=== PATIENT | female | born 1950 | race Caucasian/White ===

== ENCOUNTER 2018-12-29 07:22 | Inpatient (IN) ==
--- NOTE | 2018-12-07 09:39 | PAT Medication Instructions ---
Medication Instructions Date of Service December 07, 2018 Home Medications aspirin [Aspir-81] 81 mg PO QAM atorvastatin 40 mg PO PM calcium carbonate [Calcium 500] 2 tab PO QAM cholecalciferol (vitamin D3) 1,000 unit PO QAM omega 6-xkb-pfc-fish oil [Fish Oil] 2 cap PO QAM STOP taking 2 weeks before surgery (or as soon as possible if surgery is within 2 weeks) omega 0-bec-mnq-fish oil [Fish Oil] 2 cap PO QAM DO NOT take the morning of surgery calcium carbonate [Calcium 500] 2 tab PO QAM cholecalciferol (vitamin D3) 1,000 unit PO QAM Take morning of surgery With a small sip of water, OTHERWISE NOTHING TO EAT OR DRINK AFTER MIDNIGHT: aspirin [Aspir-81] 81 mg PO QAM Take evening before surgery atorvastatin 40 mg PO PM Other Notes If you have any questions please call us at [phone] or [phone] or [phone] or [phone]
--- NOTE | 2018-12-07 11:14 | Anesthesiology Consultation ---
Date of Service December 07, 2018 Assessment & Plan (1) Encounter for pre-operative examination: Chart Review Chart Review: Acceptable Risk for Surgery and Patient seen in Pre Admission Testing Teaching & Discussion Pre-Anesthesia Teaching/Discussion Notes: Instructed NPO after midnight before surgery,except medications with 15 cc of water. Medication instructions provided according to the PAT guidelines. History Surgery Operation Date: 12/29/18 08:50 Proposed Procedures p Right Total Knee Arthroplasty - David Anguiano DO Height/Weight Height: 5 ft 1 in Weight: 78.3 kg Allergies Allergy/AdvReac Type Severity Reaction Status Date / Time sulfamethoxazole Allergy Hives Verified 11/30/18 11:26 [From Bactrim] trimethoprim [From Bactrim] Allergy Hives Verified 11/30/18 11:26 Medications Home Medications Medication Instructions Recorded Confirmed Last Taken aspirin [Aspir-81] 81 mg PO QAM 11/30/18 11/30/18 Unknown atorvastatin 40 mg PO PM 11/30/18 11/30/18 Unknown calcium carbonate [Calcium 500] 2 tab PO QAM 11/30/18 11/30/18 Unknown cholecalciferol (vitamin D3) 1,000 unit PO QAM 11/30/18 11/30/18 Unknown [Vitamin D3] omega 6-mqr-mxl-fish oil [Fish Oil] 2 cap PO QAM 11/30/18 11/30/18 Unknown Past Medical History Medical History History of skin cancer Hyperlipidemia Obesity Osteoarthritis Past Surgical History Surgical History History of bilateral tubal ligation History of colonoscopy Past Anesthesia History No Family Hx of Anesthesia Complications and Other Slow to wake x 1 episode with colonoscopy; no issues with subsequent anesthesia. History of PONV No Motion Sickness Screening History of Motion Sickness: Yes (OCCASIONAL) Social History Smoking Status: Never smoker Do You Dip or Chew Tobacco: No Hx Alcohol Use: No alcohol intake frequency: 0-2 drinks per day Alcohol Intake Frequency Comment: 0 Hx Substance Use: No substance use type: does not use Exercise / Class Metabolic Activity II 4-5 Yardwork/Stairs/Walk up hill Review of Systems Patient denies chest pain, shortness of breath, dyspnea on exertion, reflux, cough, wheezing, palpitations. Physical Exam Vital Signs VITALS BP 140/78 P 65 TEMP 97.8 SP02 98%RA RESP 16 Patient advised to followup with PCP regarding elevated BP. PHYSICAL Full neck and c-spine range of motion. Full TMJ range of motion. TMD 3 finger breaths Mallampati Score 3 Dentition: missing sides/molars Lungs: clear throughout to auscultation Cardiac: regular rate and rhythm, no murmurs noted Spine: normal Carotid arteries: negative bruit Extremities: no edema Testing Electrocardiogram Date: 12/07/18 Findings: + NSR @ (71) Chest X-Ray Date: 12/07/18 Findings: + NAD Laboratory Results Blood Type B Positive 12/07/18 11:30 Antibody Screen POSITIVE A 12/07/18 11:30 PT 9.8 Seconds (9.0-12.0) 12/07/18 11:30 INR 1.0 (0.9-1.1) 12/07/18 11:30 APTT 26.4 Seconds (21.0-31.0) 12/07/18 11:30 Positive T&S antibodies- per blood bank, nothing needed prior to surgery from [facility]. 11/07/18 WBC 7.77 H/H 14.0/41.6 PLATELETS 270 SODIUM 144 POTASSIUM 4.2 CHLORIDE 105 CO2 26 BUN 20 CREATININE 0.9 GLUCOSE 92
--- NOTE | 2018-12-07 11:54 | XRay Report ---
XR chest Pre-admission PA/Lat CLINICAL HISTORY: Preoperative chest COMPARISON STUDY: No previous studies for comparison. FINDINGS: The cardiac and mediastinal contours are normal. There is no evidence of focal pulmonary co nsolidation. There is no evidence of failure. No pleural effusions are visualized.[ IMPRESSION: No active disease in the chest. Electronically signed by: Felipe Gonzales M.D. 12/07/2018 11:53 AM
[2018-12-07 13:08] LABS: Partial Thromboplastin Time 26.4 Seconds (21.0-31.0); Prothrombin Time 9.8 Seconds (9.0-12.0)
--- NOTE | 2018-12-27 20:42 | History & Physical Report ---
Date of Service December 27, 2018 Assessment & Plan (1) Osteoarthritis of right knee: We will proceed with a right total knee arthroplasty. Postoperatively she will be started on aspirin for DVT prophylaxis. She will be kept overnight at the hospital for postop medical management. She plans to use [employer] upon discharge. Present on Admission?: Yes History of Present Illness Chief Complaint: Primary osteoarthritis of the right knee Primary Care Provider: Miley Mooney DO Cortney is a pleasant 68-year-old female who is been dealing with chronic increasing right knee pain. X-rays and clinical examination have been diagnostic for primary osteoarthritis of the right knee. After failing conservative treatment, she has elected proceed with a right total knee arthroplasty. Allergies Allergy/AdvReac Type Severity Reaction Status Date / Time sulfamethoxazole Allergy Hives Verified 11/30/18 11:26 [From Bactrim] trimethoprim [From Bactrim] Allergy Hives Verified 11/30/18 11:26 Home Medications Home Medications Medication Instructions Recorded Confirmed Type aspirin [Aspir-81] 81 mg PO QAM 11/30/18 11/30/18 History atorvastatin 40 mg PO PM 11/30/18 11/30/18 History calcium carbonate [Calcium 500] 2 tab PO QAM 11/30/18 11/30/18 History cholecalciferol (vitamin D3) 1,000 unit PO QAM 11/30/18 11/30/18 History [Vitamin D3] omega 7-pds-atd-fish oil [Fish Oil] 2 cap PO QAM 11/30/18 11/30/18 History Past Med/Surg History Medical History History of skin cancer Hyperlipidemia Obesity Osteoarthritis Surgical History History of bilateral tubal ligation History of colonoscopy Social History Preferred Language: Kittitian Communication Ability: Effective Director Digital Catalogue Required: No Beliefs That Will Affect Care: None Current Living Situation: Spouse Other Information That Helps Us Care for You: No Feels Safe at Home: Yes Safety Concerns: Feels Safe At This Time Smoking Status: Never smoker Hx Alcohol Use: No Hx Substance Use: No Review of Systems All systems reviewed & are unremarkable except as noted in HPI & below Physical Exam Constitutional: WD/WN, vitals as above Eyes: PERRL, conjunctivae normal, anicteric sclerae ENMT: external ear and nose normal, oropharynx normal Neck: trachea midline, no thyromegaly Respiratory: normal respiratory effort Cardiovascular: RRR, no murmur, no edema Gastrointestinal (Abdomen): normal bowel sounds, soft, nontender, no hepatosplenomegaly Musculoskeletal: On physical examination of the right knee there is a trace effusion. There is near full range of motion and no evidence of instability. There is significant tenderness palpation along the medial and lateral joint lines and over the distal femoral condyles. Psychiatric: A+Ox3, euthymic affect Results & Data Diagnostic Findings Radiographs of the right knee demonstrate advanced osteoarthritis with joint space narrowing osteophyte formation and ltvy-ph-zjph articulation.
[~2018-12-29 07:22] MED LIST: ACETAMINOPHEN 500 MG TAB PO SCH; BUPIVACAINE 0.5 % 5 MG/1 ML PF 10ML VIAL ONE; CEFAZOLIN 2000MG 2,000 MG/15 ML SYR IV SCH; FAMOTIDINE 20 MG TAB PO SCH; GABAPENTIN 300 MG PO SCH; LR 60ML/HR IV SCH; ROPIVACAINE 0.5% 5 MG/ML 30 ML VIAL ONE; ROPIVACAINE 0.5% HCL/PF 150 MG, BUPIVACAINE 0.5% MPF 30 ML, EPINEPHrine 30MG/30ML (OR U... INFIL SCH; TRANEXAMIC ACID 1,000 MG **IV Intra-op IV SCH; TRANEXAMIC ACID 1,000 MG **IV Pre-op IV SCH
[2018-12-29] MEDS: LR 500ML BOLUS, THEN 15ML/HR IV SCH ×2 (08:13→09:48)
--- NOTE | 2018-12-29 08:23 | History & Physical Bridge Note ---
Date of Service December 29, 2018 History & Physical Bridge Note I have examined the patient, reviewed the History & Physical and in the interval since the performance of the History & Physical I have noted the following changes of clinical significance: no changes noted
[2018-12-29] MEDS ORDERED: ORTHO JOINT ANESTHETIC ONE (08:43)
[2018-12-29] MEDS ORDERED: POVIDONE-IODINE OP SOLN 30 ML BTL ONE (08:43)
[2018-12-29] MEDS ORDERED: fentaNYL citrate 100 MCG/2 ML VIAL ONE (08:47)
[2018-12-29] MEDS ORDERED: ONDANSETRON INJ 2 MG/ML 2 ML VIAL ONE (08:47)
[2018-12-29] MEDS ORDERED: MIDAZOLAM HCL 1 MG/ML 2ML VIAL ONE ×2 (08:47→10:14)
[2018-12-29] MEDS ORDERED: PROPOFOL IV EMULSION 10 MG/ML 20 ML VIAL IV ONE ×2 (08:47→10:36)
[2018-12-29] MEDS ORDERED: ONDANSETRON INJ 2 MG/ML 2 ML VIAL IV PRN ×2 (09:29→12:44)
[2018-12-29] MEDS ORDERED: HYDROmorphone INJ 1 MG/ML SYRINGE IV PRN (09:29)
[2018-12-29] MEDS ORDERED: ATROPINE SULFATE 0.1 MG/ML 10ML SYR IV PRN (09:29)
[2018-12-29] MEDS ORDERED: PHENYLEPHRINE 100MCG/ML 5ML SYR IV PRN (09:29)
[2018-12-29] MEDS ORDERED: ePHEDrine sulfate 50 MG/ML AMP IV PRN (09:29)
[2018-12-29] MEDS ORDERED: KETOROLAC 30 MG/ML VIAL IV PRN (09:29)
--- NOTE | 2018-12-29 11:20 | Operative Report ---
Post Operative Report Pre & Post Diagnosis Operation Date: 12/29/18 10:00 Pre-Op Diagnosis: Right Knee Degenerative Joint Disease Post-Op Diagnosis: Right Knee Degenerative Joint Disease Procedure Operation Date: 12/29/18 10:00 Actual Procedures p Right Total Knee Replacement(Right) - David Anguiano DO Surgeon David Anguiano DO Resistor Inspector David Curry PAC Estimated Blood Loss 10 Findings Consistent with Post-Op Diagnosis Specimens Right femoral and tibial bone Complications none Disposition Disposition: Recovery Room Indications Cortney is a pleasant 68-year-old female who presented my office thanks with chronic increasing right knee pain. X-rays and clinical examination have been diagnostic for primary osteoarthritis of the right knee. After failing conservative treatment, she has elected to proceed with a right total knee arthroplasty. Description of Procedure Implants used: I used a [employer] Vanguard total knee arthroplasty system with a size 60 femur, 63 tibia, 31 patella, and a size 10 PS polyethylene bearing. All components were cemented in place with Palacos G cement. The patient arrived [facility] for the above procedure. There were seen in the preoperative holding area and the operative extremity was identified and signed. There were given a preoperative antibiotic, a spinal anesthetic and an adductor nerve block. There were taken back to the operating room and laid on the table in supine position. There were given basic sedation. The operative knee was then prepped and draped in sterile fashion. A timeout was done, and the patient and the operative extremity was properly identified. A midline incision was made directly over the patella. Dissection was taken down to the extensor mechanism. A subvastus arthrotomy was used. The medial retinaculum was released and the fat pad was mostly left intact. The knee was flexed and the ACL, PCL, and meniscus were removed. A drill was sent down the center of the femoral canal followed by an intramedul purnima nixon. Off that nixon a distal femoral cutting block was placed. 9 mm was resected off the distal femur at 5� of valgus. A posterior referencing AP sizing guide was then placed on the distal femur. The femur measured to be a size 60. 2 drill holes were placed in 3� of external rotation. A 4-in-1 cutting block was then impacted into place. Anterior posterior and chamfer cuts were then made. The posterior stabilizing box guide was then impacted into place and the box was resected for the posterior stabilizing component. The proximal tibia was then exposed. A drill was sent down the center of the tibial canal followed by an intramedullary nixon. Off that nixon a proximal tibial resection guide was placed. The proximal tibia was then resected. The tibia measured to be a size 63. The tibial plate was then placed in the appropriate rotation and the tibia was punched. The posterior aspect of the knee was then opened up and any additional meniscus fragments and osteophytes were removed. Trial components were then placed. I used a size 10 PS polyethylene insert. The knee was brought through a full range of motion and felt to be stable. The patella was then everted and 8 mm was resected off the posterior aspect of the patella. The patella measured to be a size 31. 3 peg holes were then drilled. A trial patella was placed. The knee was once again brought through a full range of motion and felt to be stable. Trial components were then removed. The surrounding soft tissues were injected with 100 cc of an orthopedic pain control cocktail. All components were then c emented into place with Palacos G cement. The final polyethylene insert was then snapped into place and the anterior bar was locked. Once cement was dry the tourniquet was deflated. Hemostasis was obtained. A dilute betadyne lavage was then done for 3 minutes. The joint was then irrigated with normal saline solution. The subvastus arthrotomy was then closed with #1 Vicryl suture. The skin was closed with 2-0 Vicryl, 3-0V lock suture, and kemi. A soft compressive dressing was placed. The patient was then transferred to a hospital bed and taken to the postanesthesia care unit in stable condition. They tolerated the procedure well. I attest to the content of the Intraoperative Record and any orders documented therein. Any exceptions are noted below.
--- NOTE | 2018-12-29 12:14 | XRay Report ---
XR knee RT 2V routine HISTORY: 68 years-old Female Surgical Post Op status post right knee total arthroplasty. History of degenerative joint disease COMPARISON: Right knee radiographs 10/14/2017 TECHNIQUE: 2 views of the right knee FINDINGS: Right knee total joint arthroplasty with patellar resurfacing. Alignment is satisfactory with anterio r midline skin kemi, expected postsurgical soft tissue swelling and deep tissue air with surgical drainage catheter. No acute fracture. IMPRESSION: Right knee total joint arthroplasty demonstrates satisfactory alignment. The above report was generated using voice recognition software. It may contain grammatical, syntax o r spelling errors. Electronically signed by: Jf Beltran M.D. 12/29/2018 12:13 PM
[2018-12-29] MEDS ORDERED: MAGNESIUM HYDROXIDE SUSP 30 ML UDC PO PRN (12:44)
[2018-12-29] MEDS ORDERED: NALOXONE HCL 0.4 MG/1 ML VIAL/CARP IV PRN (12:44)
[2018-12-29] MEDS ORDERED: BISACODYL 10 MG SUPP PR PRN (12:44)
[2018-12-29] MEDS ORDERED: HYDROmorphone INJ 0.5 MG/0.5 ML SYR IV PRN (12:44)
[2018-12-29] MEDS ORDERED: OXYCODONE HCL IR 5 MG TAB (IMMEDIATE RELEASE) PO PRN (12:44)
[2018-12-29] MEDS ORDERED: METOCLOPRAMIDE HCL INJ 5 MG/ML 2 ML VIAL IV PRN (12:44)
--- NOTE | 2018-12-29 13:26 | Anesthesiology Progress Note ---
Date of Service December 29, 2018 Anesthesia Post Procedure Vital Signs Vital Signs: Temp Pulse Pulse Resp BP Pulse Ox 12/29/18 12:27 36.4 C L 80 17 125/66 96 12/29/18 12:14 36.4 C L 77 17 139/73 95 12/29/18 12:05 80 16 146/70 H 94 12/29/18 11:55 87 19 116/80 94 12/29/18 11:45 80 15 121/64 97 12/29/18 11:39 37.3 C 89 14 137/64 96 12/29/18 07:30 36.9 C 71 20 156/79 H 94 Pain Intensity Right Knee: Pain Intensity: 1 Notes Mental Status: alert / awake / arousable Patient Amnestic to Procedure: Yes Nausea / Vomiting: adequately controlled Pain: adequately controlled Airway Patency, RR, SpO2: stable & adequate BP & HR: stable & adequate Hydration State: stable & adequate Neuraxial Anesthesia: was administered and sensory block is resolving Anesthetic Complications: no major complications apparent
[2018-12-29] MEDS: SODIUM CHLORIDE 0.9% 1000ML 1,000 ML IV SCH (13:52)
[2018-12-29] MEDS: KETOROLAC TROMETHAMINE 15 MG/ML VIAL IV SCH ×2 (13:58→19:22)
[2018-12-29] MEDS: CEFAZOLIN 2000MG 2,000 MG/15 ML SYR IV SCH (17:36)
[2018-12-29] MEDS ORDERED: ATORVASTATIN 40 MG TAB PO SCH (21:00)
[2018-12-29] MEDS ORDERED: SENNA 8.6 MG TAB PO SCH (21:00)
[2018-12-29] MEDS: DOCUSATE SODIUM 100 MG CAP PO SCH (22:09)
[2018-12-29] MEDS: ACETAMINOPHEN 500 MG TAB PO SCH (22:10)
[2018-12-29] MEDS: ASPIRIN 81 MG ECTAB PO SCH (22:10)
[2018-12-30] MEDS: SODIUM CHLORIDE 0.9% 1000ML 1,000 ML IV SCH (01:21)
[2018-12-30] MEDS: KETOROLAC TROMETHAMINE 15 MG/ML VIAL IV SCH ×2 (02:21→09:52)
[2018-12-30] MEDS: CEFAZOLIN 2000MG 2,000 MG/15 ML SYR IV SCH (02:21)
[2018-12-30 06:14] LABS: Hematocrit (blood only) 35.1 % (37-47); Hemoglobin 11.6 g/dL (12.0-16.0); Mean Corpuscular Volume 91.2 fL (80-100); Mean Platelet Volume 9.8 fL (7.4-10.4); Platelet Count 233 K/uL (130-400); RDW Coefficient of Variation 13.8 % (11.5-14.5); RDW Standard Deviation 46.2 fL (36.4-46.3); Red Blood Count 3.85 M/uL (4.2-5.4); White Blood Count 13.53 K/uL (4.8-10.8)
[2018-12-30 06:24] LABS: BUN Creatinine Ratio 19.9 (10-20); Calcium 8.8 mg/dl (8.5-10.1); Creatinine Clr Calc Pharmacy 49.6 ml/min; Est GFR (African American) 66.9; Est GFR (Non-African American) 57.7; Potassium 4.2 mmol/L (3.5-5.1)
[2018-12-30] MEDS: ACETAMINOPHEN 500 MG TAB PO SCH (06:25)
[2018-12-30] MEDS ORDERED: MULTIVITAMIN TAB PO SCH (09:00)
--- NOTE | 2018-12-30 09:18 | Orthopedic Progress Note ---
Date of Service December 30, 2018 Assessment & Plan (1) Osteoarthritis of right knee: Overall she is doing very well. She is not having much pain in the right knee. She will ambulate today with physical therapy. As long as her pain is well controlled she can be discharged home with [facility]. She will follow-up with orthopedics in 2 weeks. Present on Admission?: Yes Subjective Cortney was seen and examined at bedside this morning. Overall she is doing very well. She is not having any pain in the right knee. She is very happy with her progress. She has no complaints. Physical Exam Vital Signs (Past 24 Hours): Last Vital Signs Temp 36.6 C 12/30/18 07:02 Pulse 65 12/30/18 07:02 Resp 18 12/30/18 07:02 BP 129/73 12/30/18 07:02 Pulse Ox 96 12/30/18 07:02 Musculoskeletal: On physical examination of the right knee, the dressing is clean and dry. She is active dorsiflexion and plantarflexion of her right ankle. Sensation is intact. She is sitting at the edge of her bed with her knee flexed. Results & Data Laboratory Results H & H 12/30/18 Range/Units 05:56 Hgb 11.6 L (12.0-16.0) g/dL Hct 35.1 L (37-47) % Coagulation 12/07/18 Range/Units 11:30 INR 1.0 (0.9-1.1) Diagnostic Findings X-rays postoperatively of the right knee show the prosthesis to be in anatomic alignment without any evidence of fracture, dislocation, or loosening.
--- NOTE | 2018-12-30 09:19 | Discharge Summary ---
Date of Service December 30, 2018 Admission HPI Per Admitting Provider Cortney is a pleasant 68-year-old female who is been dealing with chronic increasing right knee pain. X-rays and clinical examination have been diagnostic for primary osteoarthritis of the right knee. After failing con servative treatment, she has elected proceed with a right total knee arthroplasty. Specialty Data Orthopedic H & H 12/30/18 Range/Units 05:56 Hgb 11.6 L (12.0-16.0) g/dL Hct 35.1 L (37-47) % Coagulation 12/07/18 Range/Units 11:30 INR 1.0 (0.9-1.1) Discharge Data Consultations 12/29/18 12:44 Consult Case Management - Discharge Planning Routine Procedures Performed Operation Date: 12/29/18 10:00 Actual Procedures p Right Total Knee Replacement(Right) - David Anguiano DO Hospital Course (1) Osteoarthritis of right knee: On December 29, 2018 Cortney arrived at [facility] and underwent a right total knee arthroplasty without complication. Postoperatively she was started on aspirin for DVT prophylaxis and discharged to general orthopedic floors. Her hospital course was uneventful. On postop day #1 her H&H was stable and her pain was well controlled. She was able to ambulate well with physical therapy. She was then discharged home with [facility]. She will follow-up with orthopedics in 2 weeks. Discharge Instructions Home Medications Medication Instructions Recorded Confirmed aspirin [Aspir-81] 81 mg PO QAM 11/30/18 12/29/18 atorvastatin 40 mg PO PM 11/30/18 12/29/18 calcium carbonate [Calcium 500] 2 tab PO QAM 11/30/18 12/29/18 cholecalciferol (vitamin D3) 1,000 unit PO QAM 11/30/18 12/29/18 [Vitamin D3] omega 5-gmu-nwe-fish oil [Fish Oil] 2 cap PO QAM 11/30/18 12/29/18 Previous Rx's Medication Instructions Recorded aspirin [Ecotrin Low Strength] 81 mg PO BID #84 tab 12/30/18 oxycodone 5 - 10 mg PO Q4H PRN #40 tab 12/30/18
[2018-12-30] MEDS: ASPIRIN 81 MG ECTAB PO SCH (09:52)
[2018-12-30] MEDS: DOCUSATE SODIUM 100 MG CAP PO SCH (09:52)
== END 2018-12-30 12:06 | disposition home health service (06) ==
LOC: ASU 07:22 → 3E 11:23

== ENCOUNTER 2019-06-08 11:04 | Inpatient (IN) ==
--- NOTE | 2019-05-25 15:38 | PAT Medication Instructions ---
Medication Instructions Date of Service May 25, 2019 Home Medications atorvastatin 40 mg PO QPM calcium carbonate [Calcium 500] 2 tab PO QAM cholecalciferol (vitamin D3) 1,000 unit PO QAM omega 2-izq-wqr-fish oil [Fish Oil] 2 cap PO QAM aspirin [Ecotrin Low Strength] 81 mg PO QAM STOP taking 2 weeks before surgery omega 9-nxg-gwd-fish oil [Fish Oil] 2 cap PO QAM DO NOT take the morning of surgery calcium carbonate [Calcium 500] 2 tab PO QAM cholecalciferol (vitamin D3) 1,000 unit PO QAM Take morning of surgery With a small sip of water, OTHERWISE NOTHING TO EAT OR DRINK AFTER MIDNIGHT: aspirin [Ecotrin Low Strength] 81 mg PO QAM Take evening before surgery atorvastatin 40 mg PO QPM Other Notes If you have any questions please call us at [phone] or [phone] or [phone] or [phone]
--- NOTE | 2019-05-28 10:38 | Anesthesiology Consultation ---
Date of Service May 28, 2019 Assessment & Plan (1) Encounter for pre-operative examination: Chart Review Chart Review: Acceptable Risk for Surgery and Patient seen in Pre Admission Testing Teaching & Discussion Instructed NPO after midnight before surgery, except medications with 15 cc of water. Medication instructions provided according to the PAT guidelines. History Surgery Operation Date: 06/08/19 10:00 Proposed Procedures p Left Total Knee Arthroplasty - David Anguiano DO Height/Weight Height: 5 ft 2 in Weight: 76.6 kg Allergies Allergy/AdvReac Type Severity Reaction Status Date / Time sulfamethoxazole Allergy Unknown Hives Verified 05/17/19 08:31 [From Bactrim] trimethoprim [From Bactrim] Allergy Unknown Hives Verified 05/17/19 08:31 Medications Home Medications Medication Instructions Recorded Confirmed Last Taken atorvastatin 40 mg PO QPM 11/30/18 05/17/19 05/16/19 calcium carbonate [Calcium 500] 2 tab PO QAM 11/30/18 05/17/19 12/28/18 09:00 cholecalciferol (vitamin D3) 1,000 unit PO QAM 11/30/18 05/17/19 12/28/18 09:00 [Vitamin D3] omega 1-hle-xch-fish oil [Fish Oil] 2 cap PO QAM 11/30/18 05/17/19 05/17/19 aspirin [Ecotrin Low Strength] 81 mg PO QAM 05/17/19 05/17/19 05/17/19 Past Medical History Medical History History of skin cancer s/p excisions Hyperlipidemia Obesity Osteoarthritis Exercise / Class Metabolic Activity II 4-5 Yardwork/Stairs/Walk up hill (denies cp or sob with 1 FOSm does daily at home) Past Surgical History Surgical History History of bilateral tubal ligation History of colonoscopy Status post right knee replacement 12/2018 [facility]. Past Anesthesia History No Hx of Anesthesia Complications and No Family Hx of Anesthesia Complications S/P R TKA 12/2018 -- SAB + PNB WITHOUT ISSUES. History of PONV No Hx of PONV and Hx of Motion Sickness Social History Smoking Status: Never smoker Do You Dip or Chew Tobacco: No Hx Alcohol Use: No Hx Substance Use: No substance use type: does not use Review of Systems Pt denies any recent chest pain, shortness of breath, palpitations, cough, fever or URI. Physical Exam Vital Signs BP: 128/74 P: 62bpm SPO2: 96% RA T: 97.6 F R: 12 Constitutional Flat affect. ENMT Mouth: no dental restorations, no chipped teeth and no loose teeth Thyromental Distance: > or= 3.5 Finger Breadths (3.5) Mallampati Class: III Neck normal visual inspection; neck extension not limited Respiratory normal respiratory effort Auscultation: lungs clear to auscultation bilaterally Cardiovascular Rate/Rhythm: regular rate and regular rhythm Heart Sounds: no murmur Vessels: no carotid bruit Extremities: no edema Testing Laboratory Results 05/28/19 10:55 05/28/19 10:55 PT 10.0 Seconds (9.0-12.0) 05/28/19 10:55 INR 1.0 (0.9-1.1) 05/28/19 10:55 APTT 27.6 Seconds (21.0-31.0) 05/28/19 10:55 Urine Color Yellow 05/28/19 10:55 Urine Appearance Clear (Clear) 05/28/19 10:55 Urine pH 7.0 (4.5-7.5) 05/28/19 10:55 Ur Specific [place] 1.014 (1.000-1.030) 05/28/19 10:55 Urine Protein Negative (Negative) 05/28/19 10:55 Urine Glucose (UA) Negative (Negative) 05/28/19 10:55 Urine Ketones Negative (Negative) 05/28/19 10:55 Urine Nitrite Negative (Negative) 05/28/19 10:55 Ur Leukocyte Esterase 2+ (Negative) H 05/28/19 10:55 Urine WBC (Auto) 10-30 /hpf (0-5) H 05/28/19 10:55 Urine RBC (Auto) 0-4 /hpf (0-4) 05/28/19 10:55 U Hyaline Cast (Auto) 1-5 /lpf (0-5) 05/28/19 10:55 U Epithel Cells (Auto) >30 /lpf (0-5) H 05/28/19 10:55 Urine Bacteria (Auto) Negative (Negative) 05/28/19 10:55 Blood Type B Positive 05/28/19 10:55 Antibody Screen POSITIVE A 05/28/19 10:55 AB screen + for anti-C -- blood bank aware. Electrocardiogram Date: 12/07/18 Findings: + NSR @ (71) Chest X-Ray Date: 12/07/18 Findings: + NAD
[2019-05-28 11:43] LABS: Basophils # (auto) 0.02 K/uL (0-0.2); Basophils % (auto) 0.3 %; Eosinophils # (auto) 0.21 K/uL (0-0.5); Eosinophils % (auto) 3.1 %; Hemoglobin 12.7 g/dL (12.0-16.0); Immature Granulocytes # (auto) 0.01 K/uL (0.00-0.02); Immature Granulocytes % (auto) 0.1 %; Lymphocytes # (auto) 1.82 K/uL (1.2-3.4); Lymphocytes % (auto) 27.3 %; Mean Corpuscular Hgb Conc 33.4 g/dL (32-36); Mean Corpuscular Volume 86.6 fL (80-100); Mean Platelet Volume 9.8 fL (7.4-10.4); Monocytes # (auto) 0.58 K/uL (0.11-0.59); Monocytes % (auto) 8.7 %; Neutrophils # (auto) 4.03 K/uL (1.4-6.5); Neutrophils % (auto) 60.5 %; Platelet Count 236 K/uL (130-400); RDW Coefficient of Variation 14.5 % (11.5-14.5); RDW Standard Deviation 45.5 fL (36.4-46.3); Red Blood Count 4.39 M/uL (4.2-5.4); White Blood Count 6.67 K/uL (4.8-10.8)
[2019-05-28 11:50] LABS: BUN Creatinine Ratio 18.6 (10-20); Calcium 10.1 mg/dl (8.5-10.1); Creatinine Clr Calc Pharmacy 56.8 ml/min; Est GFR (African American) 77.7; Potassium 4.9 mmol/L (3.5-5.1)
[2019-05-28 12:04] LABS: Partial Thromboplastin Time 27.6 Seconds (21.0-31.0)
[2019-05-28 12:07] LABS: Appearance Urine Clear (Clear); Bacteria Urine Automated Negative (Negative); Bilirubin Urine Negative (Negative); Blood Urine Trace (Negative); Color Urine Yellow; Epithelial Cell Urine Auto >30 /lpf (0-5); Glucose Urine UA Negative (Negative); Ketones Urine Negative (Negative); Leukocyte Esterase Urine 2+ (Negative); Nitrite Urine Negative (Negative); Protein Urine Negative (Negative); RBC Urine Automated 0-4 /hpf (0-4); Specific Gravity Urine 1.014 (1.000-1.030); Urobilinogen Urine Negative (Negative)
--- NOTE | 2019-06-07 16:44 | History & Physical Report ---
Date of Service June 07, 2019 Assessment & Plan (1) Osteoarthritis of left knee: We will proceed with a left total knee arthroplasty. Postoperatively she will be started on aspirin for DVT prophylaxis. She will be kept overnight at the hospital for postoperative medical management. She plans to use [facility] upon discharge. Present on Admission?: Yes History of Present Illness Chief Complaint: Primary osteoarthritis of the left knee Primary Care Provider: Miley Mooney DO Cortney is a pleasant 69-year-old female who underwent a right total knee arthroplasty in December 2018. She did extremely well with that. Unfortunately she is now having a lot of left knee pain. X-rays and clinical examination have been diagnostic for primary osteoarthritis of the left knee. After failing conservative treatment, she has elected to proceed with a left total knee arthroplasty. Allergies Allergy/AdvReac Type Severity Reaction Status Date / Time sulfamethoxazole Allergy Unknown Hives Verified 05/17/19 08:31 [From Bactrim] trimethoprim [From Bactrim] Allergy Unknown Hives Verified 05/17/19 08:31 Home Medications Home Medications Medication Instructions Recorded Confirmed Type atorvastatin 40 mg PO QPM 11/30/18 05/17/19 History calcium carbonate [Calcium 500] 2 tab PO QAM 11/30/18 05/17/19 History cholecalciferol (vitamin D3) 1,000 unit PO QAM 11/30/18 05/17/19 History [Vitamin D3] omega 2-qzy-rnu-fish oil [Fish Oil] 2 cap PO QAM 11/30/18 05/17/19 History aspirin [Ecotrin Low Strength] 81 mg PO QAM 05/17/19 05/17/19 History Past Med/Surg History Medical History History of skin cancer s/p excisions Hyperlipidemia Obesity Osteoarthritis Surgical History History of bilateral tubal ligation History of colonoscopy Status post right knee replacement 12/2018 [facility]. Social History Preferred Language: Bengali Communication Ability: Effective Pharmacy Analyst Required: No Beliefs That Will Affect Care: None marital status: Current Living Situation: Spouse Other Information That Helps Us Care for You: No Feels Safe at Home: Yes Smoking Status: Never smoker Do You Dip or Chew Tobacco: No ; Second Hand Exposure: No ; Hx Alcohol Use: No Hx Substance Use: No Review of Systems All systems reviewed & are unremarkable except as noted in HPI & below Physical Exam Constitutional: WD/WN, vitals as above Eyes: PERRL, conjunctivae normal, anicteric sclerae ENMT: external ear and nose normal, oropharynx normal Neck: trachea midline, no thyromegaly Respiratory: normal respiratory effort Cardiovascular: RRR, no murmur, no edema Gastrointestinal (Abdomen): normal bowel sounds, soft, nontender, no hepatosplenomegaly Musculoskeletal: On physical examination of the left knee there is a trace effusion. There is near full range of motion and no evidence of instability. There is significant tenderness palpation along the medial and lateral joint lines and over the distal femoral condyles. Psychiatric: A+Ox3, euthymic affect Results & Data Diagnostic Findings Radiographs of the left knee demonstrate advanced osteoarthritis with joint space narrowing osteophyte formation and rbvj-[id number]-[id number] articulation.
[~2019-06-08 11:04] MED LIST changes: +BUPIVACAINE 0.25% 30 ML VIAL ONE; +CEFAZOLIN 1000MG 1,000 MG/7.5 ML SYR IV SCH; -CEFAZOLIN 2000MG 2,000 MG/15 ML SYR IV SCH; -GABAPENTIN 300 MG PO SCH; +GABAPENTIN 900 MG DOSE PO SCH; +LR 500ML BOLUS, THEN 15ML/HR IV SCH; -ROPIVACAINE 0.5% 5 MG/ML 30 ML VIAL ONE; -ROPIVACAINE 0.5% HCL/PF 150 MG, BUPIVACAINE 0.5% MPF 30 ML, EPINEPHrine 30MG/30ML (OR U... INFIL SCH; +ROPIVACAINE 0.5% HCL/PF 150 MG, BUPIVACAINE 0.5% MPF 30 ML, EPINEPHrine 30MG/30ML (OR U... INSTIL SCH; -TRANEXAMIC ACID 1,000 MG **IV Pre-op IV SCH
--- NOTE | 2019-06-08 12:07 | History & Physical Bridge Note ---
Date of Service June 08, 2019 History & Physical Bridge Note I have examined the patient, reviewed the History & Physical and in the interval since the performance of the History & Physical I have noted the following changes of clinical significance: no changes noted
[2019-06-08] MEDS ORDERED: MIDAZOLAM HCL 1 MG/ML 2ML VIAL ONE (12:16)
[2019-06-08] MEDS ORDERED: ePHEDrine sulfate 50 MG/ML AMP IV PRN (12:36)
[2019-06-08] MEDS ORDERED: ATROPINE SULFATE 0.1 MG/ML 10ML SYR IV PRN (12:36)
[2019-06-08] MEDS ORDERED: fentaNYL citrate 100 MCG/2 ML VIAL IV PRN (12:36)
[2019-06-08] MEDS ORDERED: ONDANSETRON INJ 2 MG/ML 2 ML VIAL IV PRN ×2 (12:36→16:53)
[2019-06-08] MEDS ORDERED: ORTHO JOINT ANESTHETIC ONE (12:43)
[2019-06-08] MEDS: TRANEXAMIC ACID 1,000 MG **IV Pre-op IV SCH ×2 (14:44→17:10)
[2019-06-08] MEDS ORDERED: PROPOFOL IV EMULSION 10 MG/ML 20 ML VIAL IV ONE (14:45)
--- NOTE | 2019-06-08 15:02 | Operative Report ---
Post Operative Report Pre & Post Diagnosis Operation Date: 06/08/19 13:10 Pre-Op Diagnosis: Degenerative Joint Disease Left Knee Post-Op Diagnosis: Degenerative Joint Disease Left Knee Procedure Operation Date: 06/08/19 13:10 Actual Procedures p Left Total Knee Arthroplasty(Left) - David Anguiano DO Surgeon David Anguiano DO Mental Health Program Director David Curry PAC Estimated Blood Loss 20 Findings Consistent with Post-Op Diagnosis Specimens Left femoral and tibial bone Complications none Disposition Disposition: Recovery Room Indications Cortney is a pleasant 69-year-old female who presented my office with complaints of increasing left knee pain. X-rays and clinical examination were diagnostic for primary osteoarthritis of left knee. I did a right total knee arthroplasty on her in December of 2018. She did very well with that. She elected to proceed with a left total knee arthroplasty. Description of Procedure Implants used: I used a [employer]omet Vanguard total knee arthroplasty system with a size 60 femur, 63 tibia, 31 patella, and a size 14 PS polyethylene bearing. All components were cemented in place with Palacos G cement. The patient arrived [facility] for the above procedure. There were seen in the preoperative holding area and the operative extremity was identified and signed. There were given a preoperative antibiotic, a spinal anesthetic and an adductor nerve block. There were taken back to the operating room and laid on the table in supine position. There were given basic sedation. The operative knee was then prepped and draped in sterile fashion. A timeout was done, and the patient and the operative extremity was properly identified. A midline incision was made directly over the patella. Dissection was taken down to the extensor mechanism. A subvastus arthrotomy was used. The medial retinaculum was released and the fat pad was mostly left intact. The knee was flexed and the ACL, PCL, and meniscus were removed. A drill was sent down the center of the femoral canal followed by an intramedullary nixon. Off that nixon a distal femoral cutting block was placed. 9 mm was resected off the distal femur at 5 of valgus. A posterior referencing AP sizing guide was then placed on the distal femur. The femur measured to be a size 60. 2 drill holes were placed in 3 of external rotation. A 4-in-1 cutting block was then impacted into place. Anterior posterior and chamfer cuts were then made. The posterior stabilizing box guide was then impacted into place and the box was resected for the posterior stabilizing component. The proximal tibia was then exposed. A drill was sent down the center of the tibial canal followed by an intramedullary nixon. Off that nixon a proximal tibial resection guide was placed. The proximal tibia was then resected. The tibia measured to be a size 63. The tibial plate was then placed in the appropriate rotation and the tibia was punched. The posterior aspect of the knee was then opened up and any additional meniscus fragments and osteophytes were removed. Trial components were then placed. I used a size 14 PS polyethylene insert. The knee was brought through a full range of motion and felt to be stable. The patella was then everted and 8 mm was resected off the posterior aspect of the patella. The patella measured to be a size 31. 3 peg holes were then drilled. A trial patella was placed. The knee was once again brought through a full range of motion and felt to be stable. Trial components were then removed. The surrounding soft tissues were injected with 100 cc of an orthopedic pain control cocktail. All components were then cemented into place with Palacos G cement. The final polyethylene insert was then snapped into place and the anterior bar was locked. Once cement was dry the tourniquet was deflated. Hemostasis was obtained. A dilute betadyne lavage was then done for 3 minutes. The joint was then irrigated with normal saline solution. The subvastus arthrotomy was then closed with #1 Vicryl suture. The skin was closed with 2-0 Vicryl, 3-0V lock suture, and kemi. A soft compressive dressing was placed. The patient was then transferred to a hospital bed and taken to the postanesthesia care unit in stable condition. They tolerated the procedure well. I attest to the content of the Intraoperative Record and any orders documented therein. Any exceptions are noted below.
--- NOTE | 2019-06-08 15:42 | XRay Report ---
LEFT KNEE 2 VIEWS History: Left total knee arthroplasty. Degenerative arthritis. Postop. FINDINGS: The patient is status post a left total knee arthroplasty. The hardware is intact. No fract ure or dislocation. Skin kemi are in place. IMPRESSION: Left total knee arthroplasty. No evidence for hardware complication. Electronically signed by: Tristian Gordon M.D. 06/08/2019 3:41 PM
--- NOTE | 2019-06-08 16:26 | Anesthesiology Progress Note ---
Date of Service June 08, 2019 Anesthesia Post Procedure Vital Signs Vital Signs: Temp Pulse Pulse Resp BP Pulse Ox 06/08/19 16:20 36.3 C L 71 18 142/70 H 98 06/08/19 16:10 58 L 20 128/70 97 06/08/19 16:00 60 17 132/68 97 06/08/19 15:50 69 20 131/71 97 06/08/19 15:40 67 20 116/62 99 06/08/19 15:30 74 18 128/67 98 06/08/19 15:24 36.9 C 80 16 132/66 97 06/08/19 11:56 36.6 C 64 18 159/76 H 96 Pain Intensity Left Knee: Pain Intensity: 0 Transfer of Care Handoff Completed per policy Notes Mental Status: alert / awake / arousable and participated in evaluation Patient Amnestic to Procedure: Yes Nausea / Vomiting: adequately controlled Pain: adequately controlled Airway Patency, RR, SpO2: stable & adequate BP & HR: stable & adequate Hydration State: stable & adequate Neuraxial Anesthesia: was administered and sensory block is resolving Anesthetic Complications: no major complications apparent
[2019-06-08] MEDS ORDERED: MAGNESIUM HYDROXIDE SUSP 30 ML UDC PO PRN (16:53)
[2019-06-08] MEDS ORDERED: SODIUM CHLORIDE 0.9% 1000ML 1,000 ML IV SCH (16:53)
[2019-06-08] MEDS ORDERED: OXYCODONE HCL IR 5 MG TAB (IMMEDIATE RELEASE) PO PRN (16:53)
[2019-06-08] MEDS ORDERED: BISACODYL 10 MG SUPP PR PRN (16:53)
[2019-06-08] MEDS ORDERED: NALOXONE HCL 0.4 MG/1 ML VIAL/CARP IV PRN (16:53)
[2019-06-08] MEDS ORDERED: METOCLOPRAMIDE HCL INJ 5 MG/ML 2 ML VIAL IV PRN (16:53)
[2019-06-08] MEDS ORDERED: HYDROmorphone INJ 0.5 MG/0.5 ML SYR IV PRN (16:53)
[2019-06-08] MEDS: KETOROLAC TROMETHAMINE 15 MG/ML VIAL IV SCH (17:41)
[2019-06-08] MEDS ORDERED: ATORVASTATIN 40 MG TAB PO SCH (21:00)
[2019-06-08] MEDS ORDERED: SENNA 8.6 MG TAB PO SCH (21:00)
[2019-06-08] MEDS: CEFAZOLIN 2000MG 2,000 MG/15 ML SYR IV SCH (21:24)
[2019-06-08] MEDS: ACETAMINOPHEN 500 MG TAB PO SCH (21:25)
[2019-06-08] MEDS: DOCUSATE SODIUM 100 MG CAP PO SCH (21:25)
[2019-06-08] MEDS: ASPIRIN 81 MG ECTAB PO SCH (21:26)
[2019-06-09] MEDS: KETOROLAC TROMETHAMINE 15 MG/ML VIAL IV SCH ×3 (00:56→11:40)
[2019-06-09] MEDS: ACETAMINOPHEN 500 MG TAB PO SCH (06:07)
[2019-06-09] MEDS: CEFAZOLIN 2000MG 2,000 MG/15 ML SYR IV SCH (06:08)
[2019-06-09 06:23] LABS: Hemoglobin 11.8 g/dL (12.0-16.0); Mean Corpuscular Hgb Conc 33.7 g/dL (32-36); Mean Corpuscular Volume 85.2 fL (80-100); Mean Platelet Volume 9.4 fL (7.4-10.4); Platelet Count 254 K/uL (130-400); RDW Coefficient of Variation 14.2 % (11.5-14.5); RDW Standard Deviation 44.8 fL (36.4-46.3); Red Blood Count 4.11 M/uL (4.2-5.4)
[2019-06-09 07:01] LABS: BUN Creatinine Ratio 21.9 (10-20); Creatinine Clr Calc Pharmacy 54.3 ml/min; Est GFR (African American) 76.6; Est GFR (Non-African American) 66.1
[2019-06-09] MEDS: DOCUSATE SODIUM 100 MG CAP PO SCH (08:13)
[2019-06-09] MEDS: ASPIRIN 81 MG ECTAB PO SCH (08:13)
[2019-06-09] MEDS ORDERED: CALCIUM CARBONATE 1250MG TAB PO SCH (09:00)
[2019-06-09] MEDS ORDERED: MULTIVITAMIN TAB PO SCH (09:00)
--- NOTE | 2019-06-09 09:19 | Orthopedic Progress Note ---
Date of Service June 09, 2019 Assessment & Plan (1) Osteoarthritis of left knee: Overall she is doing fairly well. She is not having too much pain. She will be seen by physical therapy today for range of motion and ambulation exercises. She can be discharged home later today. She plans to use IDx upon discharge. She will follow-up with orthopedics in 2 weeks. Present on Admission?: Yes Armando Barr was seen and examined at bedside this morning. Overall she is doing very well. She is little soreness in her knee but is not too bad. She is happy with her progress. She has no complaints. Physical Exam Musculoskeletal: On physical examination of the left knee, the dressing is clean and dry. She is active dorsiflexion plantar flexion of the left ankle. Sensations intact throughout. Results & Data Vital Signs (Past 12 Hours) Vital Signs Temp Pulse Resp BP Pulse Ox 06/09/19 08:15 36.3 C L 82 16 123/71 95 06/09/19 03:03 36.4 C L 60 16 133/75 94 06/08/19 23:45 36.4 C L 61 16 132/71 92 Laboratory Results H & H 05/28/19 06/09/19 Range/Units 10:55 06:04 Hgb 12.7 11.8 L (12.0-16.0) g/dL Hct 38.0 35.0 L (37-47) % Coagulation 05/28/19 Range/Units 10:55 INR 1.0 (0.9-1.1) Diagnostic Findings Postoperative x-rays of the left knee show the prosthesis to be in anatomic alignment without any evidence of fracture, dislocation, or loosening. PG Care Time/CCT Total # of Minutes Spent Total Time Spent with Patient: Total time spent is greater than 50% in coordination of care (as documented) at patient's floor/unit and/or counseling patient:
--- NOTE | 2019-06-09 09:20 | Discharge Summary ---
Date of Service June 09, 2019 Admission HPI Per Admitting Provider Cortney is a pleasant 69-year-old female who underwent a right total knee arthroplasty in December 2018. She did extremely well with that. Unfortunately she is now having a lot of left knee pain. X-rays and clinical examination have been diagnostic for primary osteoarthritis of the left knee. After failing conservative treatment, she has elected to proceed with a left total knee arthroplasty. Principal Diagnosis Left total knee arthroplasty Discharge Data Allergies Allergy/AdvReac Type Severity Reaction Status Date / Time sulfamethoxazole Allergy Intermediate Hives Verified 06/08/19 17:17 [From Bactrim] trimethoprim [From Bactrim] Allergy Intermediate Hives Verified 06/08/19 17:17 Consultations 06/08/19 16:53 Consult Case Management - Discharge Planning Routine Procedures Performed Operation Date: 06/08/19 13:10 Actual Procedures p Left Total Knee Arthroplasty(Left) - David Anguiano DO Ordered Studies 06/08/19 05:00 US - OR guided needle placemen Routine Hospital Course (1) Osteoarthritis of left knee: On June 08, 2019 Cortney arrived at [facility] and underwent a left total knee arthroplasty without complication. She had a spinal anesthetic and a left abductor nerve block. Postoperatively she was started on aspirin for DVT prophylaxis and discharged to general orthopedic floors. Her hospital course was uneventful. On postop day #1 her H&H was stable and her pain was well controlled. She was able to ambulate well with physical therapy. She was then discharged home with [facility]. She will follow-up with orthopedics in 2 weeks. Total Time Total Time Spent Total Time Spent (In Minutes): 20 Discharge Plan Discharge Items Patient Disposition: Home - Home Health Services Reason For Visit: Degenerative Joint Disease Left Knee Discharge Diagnosis: Left total knee arthroplasty Discharge Goals: Decrease discomfort and Improve function Activity: Per 'Additional Instructions' section Non-emergency contact: Surgeon Call non-emergency contact if: your wound has increased redness and your wound has increased drainage Follow-up/Referrals: Miley Mooney DO [Primary Care Provider] - Diet: Regular Addtl Provider Instructions: Activity and Therapy Recommendations: * If you are using [facility] then therapy will be provided at your home until they feel you have accomplished all of your goals. * If you are using [facility] then Physical Therapy will be provided until they feel you are ready to start Outpatient Physical Therapy. * If you are not using home therapy then Outpatient Physical Therapy should start about 3-5 days from your day of surgery. Therapy will last about 6-10 weeks * It is important not to put a pillow under your knee when you are relaxing or sleeping. It is just as important to make sure you are getting your knee perfectly straight as it is to regain your knee bend. * You were shown a series of exercises in the hospital. Do these exercises three times each day including the exercises you were shown in physical therapy. * Get up and walk several times each day. For the first four weeks, try not to stand or walk for more than one hour at a time. If you do stand or walk for more than one hour, you will not hurt anything, but your leg will likely swell. * As you feel comfortable, you may change from the walker or crutches to a cane and then to independent walking. Medications: * Narcotic You will likely be sent home from the hospital with a prescription for the narcotic pain medication that worked best throughout your stay. * Aspirin Most patients will be required to take Aspirin 81mg twice a day for 6 weeks after surgery. This is obtained [id number] and a prescription is not necessary. * Other medications may be prescribed for specific circumstances. If you have any questions, please call the office at . * Resume previous home medications unless otherwise instructed TEDs/Elastic Stockings: The white elastic stockings help limit swelling and prevent blood clots from forming in your legs.~ The more you wear them, the more they work. Wear them for six weeks. Dressing Care: If the incision is not draining then you may leave the kemi open to air. If there is a little bit of drainage or if the kemi are getting stuck on your clothing then cover the incision with a dry dressing. The kemi will be removed at your 2 week follow-up appointment. Showering: You may shower 5 days from the day of surgery. Let the soapy shower water run over the kemi and pat them dry. Do not scrub or soak the incision. Things To Watch For: * Drainage from the incision site that occurs more than one week after your surgery. * Increased redness at the incision site. * Fever above 102 degrees Fahrenheit. * Unusual chest pain or shortness of breath. * Call [facility] at with any of the above problems Follow-Up Visit: Follow-up with Dr. Anguiano 2-3 weeks after your day of surgery. An appointment was probably scheduled when you signed-up for surgery in the office. If you have any questions call Office Instructions: More detailed instructions as well as Frequently Asked Questions were provided in a folder by our office when you signed-up for surgery. Please review these instructions when you get home. If you have any further questions or concerns, please feel free to call the office at [phone] Prescriptions: New oxycodone 5 mg Tablet 5 - 10 mg PO Q4H PRN (Reason: pain) Qty: 30 RF: 0 Continued atorvastatin 40 mg Tablet 40 mg PO QPM RF: 0 calcium carbonate [Calcium 500] 500 mg calcium (1,250 mg) Tablet 2 tab PO QAM RF: 0 cholecalciferol (vitamin D3) [Vitamin D3] 1,000 unit Capsule 1,000 unit PO QAM RF: 0 omega 7-qbd-wyl-fish oil [Fish Oil] 1,000 mg (120 mg-180 mg) Capsule 2 cap PO QAM RF: 0 Changed aspirin [Ecotrin Low Strength] 81 mg tablet,delayed release (DR/EC) 81 mg PO BID Qty: 0 RF: 0 Stand-Alone Forms: [facility] Discharge Orders: Discharge Order (Routine); Ordered 06/09/19 Ordered By: David Anguiano Admission Data Admit Date/Time: 06/08/19 15:29 Attending Provider: David Anguiano Admit Provider: David Anguiano Primary Care Provider: Miley Mooney Service: Surgical Services
== END 2019-06-09 12:26 | disposition home health service (06) | DRG 470 ==
LOC: ASU 11:04 → 3E 15:29